=== PATIENT | male | born 1990 | race Caucasian/White ===

== ENCOUNTER 2019-04-10 13:25 | Emergency (ER) | payer OTHER ==
--- OUTSIDE RECORDS SUMMARY | 2019-04-10 13:41 | XMS REPORT | Continuity of Care Document ---
:1990 Author Organization [facility] Address [address] [place], [place] [id number] Phone Care Team Providers Name Role Phone Sandra Madrigal NP Unavailable Unavailable Allergies, Adverse Reactions, Alerts Substance Reaction Status No Known Allergies Active Medications Medication Instructions Dosage Effective Dates Status Comments (start - stop) LITHIUM CARBONATE Not Available - Active (unknown strength) Problems Condition Effective Dates (start - Clinical Status Comments stop) Encounter for oth general cnsl and advice on contraception Encntr screen for infections w sexl mode of transmiss Human immunodeficiency virus [HIV] - counseling Encounter for screening for human - immunodeficiency virus Procedures Procedure Date OFFICE/OUTPATIENT VISIT, NEW N.GONORRHOEAE, DNA, AMP PROB CHYLMD DNA, AMP PROBE Hepatitis C Antibody (Anti-HCV) Syphilis ROUTINE VENIPUNCTURE PREVENTIVE COUNSELING, 8-14 Minutes HIV-1/HIV-2, SINGLE ASSAY Results Test Name Date and Time Measure Units Reference Range Abnormal Flag Status Comments Panel Description: Syphilis Final Syphilis SOPHIA Non-reactive N Final Infection with T. pallidum 00:00:00 (cause of syphilis) unlikely (earlyprimary syphilis cannot be excluded). Requestadditional testing if syphilis is clinically suspected.SOPHIA: Chemiluminescence immunoassay

Performe d by:
&emsp;&ensp;CDD ([id number])

Panel Description: C trach DNA XXX Ql PCR Final Urine CT/GC Negative N Final Performed Combo - CT 00:00:00 by:
&emsp;&ensp;CDD ([id number])

Panel Description: Amplified GC - Urine Final Urine CT/GC Negative N Final : No

Performed Combo - GC 00:00:00 by:
&emsp;&ensp;CDD ([id number])

Advance Directives Directive Yes / No Effective Date File Name No information Encounters Encounter Practice Location Reason(s) Diagnoses Date Provider Providers Description For Visit Copied on Encounter OFFICE/OUTPA [facility] Encounter for oth Feb- White Referring TIENT VISIT, [facility] [place] [facility] and Sandra. Provider: [facility] advice on [address] [place] [address] contraceptionEncntr [address] [place], [address] infections w sexl [place], [address], [place], [place], [place], [place], [place] [address], [place], [address]. [id number], immunodeficiency [place]. [place] virus [HIV] tel:[phone] counselingEncounter [id number] for screening for human immunodeficiency virus Family History Family Member Diagnosis Age At Onset No information Immunizations Vaccine Date Status Comments No information Payers Payer name Insurance type Covered libertarian ID Authorization(s) Gagandeep [facility] CI [id number] Social History Type Description Quantity Date Captured Comments Alcohol Use Details Unknown Caffeine Use Details Unknown Tobacco Use Status Current non-smoker Smoking Status Never smoker Non-Smoking Tobacco : No Details Available : No Details Available 2018 Use Details Sex Male Vital Signs Date / Height Weight BMI Pulse Blood Temperature Respiratory Body Head BMI Pulse Inhaled Time: Rate Pressure Rate Surface Circumference percentile Ox Ox Area No information Chief Complaint And Reason For Visit No information Reason For Referral Reason For Referral No information Plan Of Treatment Date Type Action Status No information History Of Present Illness Encounter Date Complaint History Of Present Illness No information Functional Status Date Functional Assessment No information Medications Administered Medication Instructions Dosage Effective Dates (start - stop) Status Comments No information Instructions Date Instruction Additional Information No information Assessments Type Assessment Date assessment Encounter for oth general cnsl and advice on contraception 2018 assessment Encntr screen for infections w sexl mode of transmiss assessment Human immunodeficiency virus [HIV] counseling assessment Encounter for screening for human immunodeficiency virus 2018 Goals Health Concern Goal Type Priority Status Date No information Medical Equipment Description Device [place] Device Identifier Effective Dates (start - stop ) Status No information Mental Status Date Cognitive Assessment No information Health Concerns Observation Date No information Concern Status Date No information
--- NOTE | 2019-04-10 14:05 | ED ---
Laceration/Wound HPI - HPI Summary HPI Summary: Pt is 28 y/o otherwise healthy right-handed male with puncture wound to left fifth metacarpal occurring 1 hour ago while removing sheet rock from a stud with an exposed screw. He states he attempted to push the stud forcefully and did not see the screw until he punctured his hand. He believes the bone stopped the screw from penetrating his hand fully. States he last received tetanus vaccination 12 years ago. He has no other complaints at this time. - History of Current Complaint Stated Complaint: LEFT HAND INJURY PER PT Time Seen by Provider: 04/10/19 13:35 Hx Obtained From: Patient Mechanism of Injury: Sharp/Blunt Trauma - Puncture wound via screw., FB Potential Onset/Duration: Sudden Onset Aggravating: Nothing Alleviating: Nothing Timing: Constant Onset Severity: Moderate Current Severity: Moderate Pain Intensity: 4 Pain Scale Used: 0-10 Numeric Associated Signs & Symptoms: Negative Related Hx: Dominant Hand (Right) - Allergy/Home Medications Allergies/Adverse Reactions: Allergies Allergy/AdvReac Type Severity Reaction Status Date / Time No Known Allergies Allergy Verified 04/10/19 13:35 Home Medications: Home Medications Highland Carbonate [Highland Carbonate 600 mg cap] 600 mg PO BID 04/10/19 [ History Confirmed 04/10/19] PMH/Surg Hx/FS Hx/Imm Hx - Immunization History Date of Tetanus Vaccine: 12 years ago Infectious Disease History: No Infectious Disease History: Denies: Traveled Outside the [place] in Last 30 Days - Social History Alcohol Use: Occasionally Substance Use Type: Reports: None Smoking Status (MU): Never Smoked Tobacco Review of Systems Negative: Fever, Chills Positive: Other - puncture wound left palm. Negative: Bruising All Other Systems Reviewed And Are Negative: Yes Physical Exam Triage Information Reviewed: Yes Vital Signs On Initial Exam: Initial Vitals Temp Pulse Resp BP Pulse Ox 98.7 F 68 16 147/98 98 04/10/19 13:32 04/10/19 13:32 04/10/19 13:32 04/10/19 13:32 04/10/19 13:32 Vital Signs Reviewed: Yes Appearance: Positive: Well-Appearing, No Pain Distress Skin: Positive: Warm, Dry, Other - Puncture wound to left fifth mid metacarpal. No active bleeding. Tenderness surrounding the wound. No warmth, erythema, edema , or discharge. Cap refill <2 seconds. NV intact. Sensation intact. Head/Face: Positive: Normal Head/Face Inspection Eyes: Positive: Normal ENT: Positive: Normal ENT inspection Respiratory/Lung Sounds: Positive: Clear to Auscultation Cardiovascular: Positive: Normal Abdomen Description: Negative: Distended Musculoskeletal: Positive: Normal Neurological: Positive: Normal Psychiatric: Positive: Normal Diagnostics - Vital Signs Vital Signs Temp Pulse Resp BP Pulse Ox 04/10/19 13:32 98.7 F 68 16 147/98 98 - Laboratory Lab Statement: Any lab studies that have been ordered have been reviewed, and results considered in the medical decision making process. - Radiology Left hand x-ray Radiology Interpretation Completed By: Radiologist Summary of Radiographic Findings: no fracture Laceration Repair Course/Dx - Course Course Of Treatment: 28 y/o male with puncture wound to palmar aspect of left hand at fifth mid metacarpal with tetanus immunization not up to date. No active bleeding, minimal tenderness at puncture site with palpation. Pt refused pain medication. X-ray left hand ruled out fracture. No evidence of FB. Tdap administered. Pt to f/u with PCP - Differential Dx Differental Diagnoses: Puncture Wound - Clinical Impression Provider Diagnoses: Puncture wound of left hand without complication Discharge - Sign-Out/Discharge Documenting (check all that apply): Patient Departure Patient Received Moderate/Deep Sedation with Procedure: No - Discharge Plan Condition: Good Disposition: HOME Patient Education Materials: Puncture Wound (ED) Referrals: Deny Perdomo MD [Primary Care Provider] - Additional Instructions: Keep a bandage applied with anitbiotic ointment x 48 hours (however change bandage after 24) - Billing Disposition and Condition Condition: GOOD Disposition: Home - Attestation Statements Document Initiated by Scribe: Yes Documenting Scribe: SHANNON Strickland Provider For Whom Bill is Documenting (Include Credential): Mirtha Cagle PA-C Scribe Attestation: Dayna Buckner PA-S, scribed for Mirtha Cagle PA-C on 04/10/19 at 1536. Scribe Documentation Reviewed: Yes Provider Attestation: The documentation as recorded by the scribe, SHANNON Strickland accurately reflects the service I personally performed and the decisions made by Mirtha negron PA-C Status of Scribe Document: Viewed
[2019-04-10] MEDS ORDERED: Tetan/Diph/Pertus SYR(Tdap)* 0.5 ML SYR(BOOSTRIX) use SYR IM ONE (15:03)
[2019-04-10 15:18] VITALS: BP 137/73
== END 2019-04-10 15:17 | disposition home or self-care (01) ==
LOC: ED 13:25
DX: S61.432A Puncture wound without foreign body of left hand, initial encounter (principal); W45.0XXA Nail entering through skin, initial encounter; W22.09XA Striking against other stationary object, initial encounter
CPT/HCPCS: 90471; 90715; 99282

== ENCOUNTER 2019-08-08 21:07 | Emergency (ER) | payer SELFPAY ==
--- OUTSIDE RECORDS SUMMARY | 2019-08-08 21:14 | XMS REPORT | Continuity of Care Document ---
:1990 Author Organization [facility] Address [address] [place], [place] [id number] Phone Care Team Providers Name Role Phone Tiffany Pettit NP Unavailable Unavailable Allergies, Adverse Reactions, Alerts Substance Reaction Status No Known Allergies Active Medications Medication Instructions Dosage Effective Dates Status Comments (start - stop) LITHIUM CARBONATE Not Available - Active (unknown strength) Problems Condition Effective Dates (start - Clinical Status Comments stop) Human immunodeficiency virus [HIV] - counseling Balanitis Encounter for oth general cnsl and advice on contraception Encntr screen for infections w sexl mode of transmiss Human immunodeficiency virus [HIV] - counseling Encounter for screening for human - immunodeficiency virus Procedures Procedure Date PREVENTIVE COUNSELING, Under 8 Minutes OFFICE/OUTPATIENT VISIT, EST OTHER Medical Services Contraceptive Spinning Operator.Svc. Other Spinning Operator.Svc. STI Results Test Name Date and Time Measure Units Reference Range Abnormal Flag Status Comments No information Advance Directives Directive Yes / No Effective Date File Name No information Encounters Encounter Practice Location Reason(s) Diagnoses Date Provider Providers Description For Visit Copied on Encounter OFFICE/OUTPA [facility] STI Human [place] [facility]201 Tiffany. Provider: [facility] with virus [HIV] [address] Symptoms counselingBalanitis Amanuel Hester, [address] (M) (chief St, [address] complaint) [place], [address] [place], [place], [place], [address], [place], [address]. [id number], [place]. tel:[phone] [place] tel:[phone] tel:[phone] [facility] Encounter for oth Apr-2 White Referring [facility] [place] general cnsl and 9-[address] Sandra. Provider: Clif advice on [address] contraceptionEncntr [address] [place], [address] infections w sexl [place], [address], [place], [place], [place], [place] [address], [place], [address]. [id number], immunodeficiency [place]. [place] virus [HIV] tel:[phone] counselingEncounter [id number] for screening for human immunodeficiency virus Family History Family Member Diagnosis Age At Onset No information Immunizations Vaccine Date Status Comments No information Payers Payer name Insurance type Covered libertarian ID Authorization(s) Gagandeep [facility]INA [facility] CI [id number] Social History Type Description Quantity Date Captured [...] information Chief Complaint And Reason For Visit Most recent encounter only, dated '06/27/2019 08:50'. STI Testing with Symptoms (M) (chief complaint) Reason For Referral Reason For Referral No information Plan Of Treatment Date Type Action Status No information History Of Present Illness Encounter Date Complaint History Of Present Illness No information Functional Status Date Functional Assessment No information Medications Administered Medication Instructions Dosage Effective Dates (start - stop) Status Comments No information Instructions Date Instruction Additional Information No information Assessments Type Assessment Date assessment Human immunodeficiency virus [HIV] counseling assessment Balanitis Goals Health Concern Goal Type Priority Status Date No information Medical Equipment Description Device [place] Device Identifier Effective Dates (start - stop ) Status No information Mental Status Date Cognitive Assessment Normal Orientation Health Concerns Observation Date No information Concern Status Date No information
[2019-08-08 21:25] VITALS: BP 126/75
--- NOTE | 2019-08-08 21:26 | UC ---
Lower Extremity/Ankle HPI - HPI Summary HPI Summary: Patient is a 29yo male presenting with later right foot pain x1 hour after he was dancing and heard a "pop." Patient states he is able to walk with a limp but that it causes a lot of pain. Denies decreased ROM. Denies decreased sensation. Denies numbness and tingling. Denies ankle pain. Denies bruising or swelling. - History of Current Complaint Stated Complaint: RT FOOT INJURY Hx Obtained From: Patient Onset/Duration: Sudden Onset Severity Currently: Moderate Pain Intensity: 5 Pain Scale Used: 0-10 Numeric - Allergies/Home Medications Allergies/Adverse Reactions: Allergies Allergy/AdvReac Type Severity Reaction Status Date / Time No Known Allergies Allergy Verified 08/08/19 21:25 PMH/Surg Hx/FS Hx/Imm Hx Psychological History: Bipolar Disorder - Surgical History Surgical History: Yes Surgery Procedure, Year, and Place: wisdom teeth - Family History Known Family History: Positive: Non-Contributory - Social History Alcohol Use: Rare Substance Use Type: None Smoking Status (MU): Never Smoked Tobacco Review of Systems All Other Systems Reviewed And Are Negative: No Constitutional: Positive: Negative Skin: Negative: Bruising Respiratory: Positive: Negative Cardiovascular: Positive: Negative Motor: Negative: Weakness Neurovascular: Positive: Negative. Negative: Decreased Sensation, Decreased Pulses Musculoskeletal: Positive: Arthralgia. Negative: Decreased ROM, Edema Neurological: Positive: Negative Psychological: Positive: Negative Physical Exam Triage Information Reviewed: Yes Appearance: Well-Appearing, No Pain Distress, Well-Nourished Vital Signs: Initial Vital Signs Temp 98.6 F 08/08/19 21:19 Pulse 66 08/08/19 21:19 Resp 16 08/08/19 21:19 BP 126/75 08/08/19 21:19 Pulse Ox 99 08/08/19 21:19 Vital Signs Reviewed: Yes Eyes: Positive: Conjunctiva Clear ENT: Positive: Hearing grossly normal Neck: Positive: Supple Respiratory: Positive: No respiratory distress Cardiovascular: Positive: Pulses Normal, Brisk Capillary Refill Musculoskeletal: Positive: Strength Intact, ROM Intact, No Edema, Other: - pain to palpation of lateral right foot Neurological: Positive: Alert Psychological: Positive: Age Appropriate Behavior Skin: Positive: Other - no ecchymosis or edema noted Diagnostics - Radiology rt foot xray Radiology Interpretation Completed By: ED Physician Summary of Radiographic Findings: mcmahon fracture Lower Extremity Course/Dx - Course Course Of Treatment: Discussed with patient that his xray was read by me and Dr. Sy and that there is Mcmahon fracture present. Informed him that the official xray report will be obtained tomorrow. He received a posterior splint tonight which he was instructed leave on until he follows up with orthopedics. Gave the patients crutches so that he does not bear weight. Instructed to use ibuprofen for pain relief. I stressed the importance of follow up with the ortho referral listed as soon as possible. Directed him to go to the emergency room if pain worsens, the foot becomes cold and numb, or you are not able to bear weight. Patient voiced understanding and agreed to treatment plan. - Differential Dx/Diagnosis Provider Diagnosis: Mcmahon fracture Discharge ED - Sign-Out/Discharge Documenting (check all that apply): Patient Departure All imaging exams completed and their final reports reviewed: No - Discharge Plan Condition: Stable Disposition: HOME Patient Education Materials: Foot Fracture in Adults (ED) Referrals: Gonzalo Rankin MD [Medical Doctor] - As Soon As Possible Additional Instructions: As discussed, your xray was read by the provider who treated you. There was a fracture of your fifth metatarsal. The official xray report will be obtained tomorrow. You received a splint tonight which you should leave on until you are able to follow up with orthopedics. Use the crutches so that you do not put weight on that foot. You may use ibuprofen for pain relief. It is important that you follow up with the referral listed below as soon as possible. Go to the emergency room if pain worsens, the foot becomes cold and numb, or you are not able to bear weight. - Billing Disposition and Condition Condition: STABLE Disposition: Home
--- NOTE | 2019-08-09 12:37 | UC ---
- Progress Note Progress Note: IMPRESSION: Transverse fracture through the proximal diaphysis of the base of the fifth metatarsal without definite displacement. Wet read correct Course/Dx - Diagnoses Provider Diagnoses: Mcmahon fracture Discharge ED - Sign-Out/Discharge Documenting (check all that apply): Post-Discharge Follow Up All imaging exams completed and their final reports reviewed: Yes - Discharge Plan Condition: Stable Disposition: HOME Patient Education Materials: Foot Fracture in Adults (ED) Referrals: Gonzalo Rankin MD [Medical Doctor] - As Soon As Possible Additional Instructions: As discussed, your xray was read by the provider who treated you. There was a fracture of your fifth metatarsal. The official xray report will be obtained tomorrow. You received a splint tonight which you should leave on until you are able to follow up with orthopedics. Use the crutches so that you do not put weight on that foot. You may use ibuprofen for pain relief. It is important that you follow up with the referral listed below as soon as possible. Go to the emergency room if pain worsens, the foot becomes cold and numb, or you are not able to bear weight. - Billing Disposition and Condition Condition: STABLE Disposition: Home
== END 2019-08-08 22:05 | disposition home or self-care (01) ==
LOC: UCEAST 21:07
DX: S92.353A Displaced fracture of fifth metatarsal bone, unspecified foot, initial encounter for closed fracture (principal); X50.0XXA Overexertion from strenuous movement or load, initial encounter; Y92.9 Unspecified place or not applicable; Y93.41 Activity, dancing; F31.9 Bipolar disorder, unspecified
CPT/HCPCS: 99212; G0463

== ENCOUNTER 2021-05-10 20:48 | Inpatient (IN) ==
[2021-05-10 22:48] LABS: ABS Eosinophils 0.1 10^3/ul (0-0.6); ABS Lymphocytes 1.3 10^3/ul (1.0-4.8); ABS Monocytes 0.8 10^3/ul (0-0.8); ABS Neutrophils 4.6 10^3/ul (1.5-7.7); Eosinophil % 1.4 %; Hematocrit 44 % (42-52); Lymphocyte % 19.3 %; Mean Corpuscular HGB Conc 35 g/dL (31-36); Mean Corpuscular Hemoglobin 33 pg (27-31); Mean Corpuscular Volume 96 fL (80-94); Mean Platelet Volume 10.1 fL (7.4-10.4); Platelet Count 161 10^3/uL (150-450); Red Blood Count 4.54 10^6 /uL (4.18-5.48); Red Cell Distribution Width 13 % (10-15); White Blood Count 6.8 10^3/uL (3.5-10.8)
[2021-05-10 23:03] LABS: ALT 11 U/L (7-52); AST 20 U/L (13-39); Albumin 4.5 g/dL (3.2-5.2); Albumin/Globulin Ratio 1.8 (1-3); Alkaline Phosphatase 69 U/L (35-149); Anion Gap 7 mmol/L (2-11); Blood Urea Nitrogen 9 mg/dL (6-24); CO2 Carbon Dioxide 23 mmol/L (22-32); Chloride 104 mmol/L (101-111); EGFR African American 111.9 (>60); EGFR Non-African American 92.5 (>60); Globulin 2.5 g/dL (2-4); Glucose 113 mg/dL (70-100); Sodium 134 mmol/L (135-145)
[2021-05-10 23:04] LABS: Acetaminophen < 15 mcg/mL; Alcohol, S < 10 mg/dL (<10); Salicylate < 2.50 mg/dL (<30)
[2021-05-10] MEDS ORDERED: Lorazepam PYXIS KEY PRN (23:57)
[2021-05-10] MEDS ORDERED: LORazepam 2 mg VIAL 1 ml IM ONE (23:57)
[2021-05-11 04:38] LABS: HIV 4th Generation Nonreactive (Nonreactive)
[2021-05-11 06:03] LABS: Urine Appearance Clear; Urine Bilirubin Negative (Negative); Urine Blood Negative (Negative); Urine Color Yellow; Urine Glucose Negative (Negative); Urine Ketones Negative (Negative); Urine Nitrite Negative (Negative); Urine Protein Negative (Negative); Urine Specific Gravity 1.006 (1.002-1.030); Urine Urobilinogen Negative (Negative)
[2021-05-11 06:23] LABS: Urine Benzodiazepine Screen None Detected (None Detect); Urine Cannabinoids Screen None Detected (None Detect); Urine Opiates Screen None Detected (None Detect)
[2021-05-11] MEDS ORDERED: Al Hydrox/Mg Hydrox/Simet LIQ 30 ML UDC PO PRN (10:38)
[2021-05-11] MEDS ORDERED: Nicotine GUM 2MG FRUIT FLAVOR PO PRN (10:38)
[2021-05-12 09:04] LABS: HDL Cholesterol 38.7 mg/dL
[2021-05-12 13:49] LABS: Lithium 0.61 mmol/L (0.6-1.2)
[2021-05-13 20:55] VITALS: BP 121/74
== END 2021-05-14 13:00 | disposition home or self-care (01) | DRG 753 ==
LOC: ED 20:48 → BSU 05-11 10:38
PROVIDERS: ADMIT Psychiatry & Neurology Psychiatry; ATTEND Psychiatry & Neurology Psychiatry

== ENCOUNTER 2021-06-02 13:53 | Inpatient (IN) ==
[2021-06-02 15:01] LABS: ABS Eosinophils 0.1 10^3/ul (0-0.6); ABS Lymphocytes 1.1 10^3/ul (1.0-4.8); ABS Monocytes 0.8 10^3/ul (0-0.8); ABS Neutrophils 4.7 10^3/ul (1.5-7.7); Eosinophil % 0.8 %; Hematocrit 47 % (42-52); Hemoglobin 16.4 g/dL (14.0-18.0); Lymphocyte % 16.7 %; Mean Corpuscular HGB Conc 35 g/dL (31-36); Mean Corpuscular Hemoglobin 33 pg (27-31); Mean Corpuscular Volume 96 fL (80-94); Mean Platelet Volume 10.7 fL (7.4-10.4); Platelet Count 166 10^3/uL (150-450); Red Blood Count 4.93 10^6 /uL (4.18-5.48); Red Cell Distribution Width 13 % (10-15); White Blood Count 6.8 10^3/uL (3.5-10.8)
[2021-06-02 15:07] LABS: Urine Appearance Clear; Urine Bilirubin Negative (Negative); Urine Blood Negative (Negative); Urine Color Straw; Urine Glucose Negative (Negative); Urine Ketones Negative (Negative); Urine Nitrite Negative (Negative); Urine Protein Negative (Negative); Urine Specific Gravity 1.003 (1.002-1.030); Urine Urobilinogen Negative (Negative)
[2021-06-02 15:15] LABS: ALT 12 U/L (7-52); AST 21 U/L (13-39); Albumin/Globulin Ratio 1.9 (1-3); Alkaline Phosphatase 80 U/L (35-149); Anion Gap 5 mmol/L (2-11); Blood Urea Nitrogen 10 mg/dL (6-24); CO2 Carbon Dioxide 28 mmol/L (22-32); Calcium 10.4 mg/dL (8.6-10.3); Chloride 103 mmol/L (101-111); EGFR African American 110.5 (>60); EGFR Non-African American 91.4 (>60); Globulin 2.6 g/dL (2-4); Glucose 111 mg/dL (70-100); Potassium 4.1 mmol/L (3.5-5.0); Sodium 136 mmol/L (135-145); Total Protein 7.6 g/dL (6.4-8.9)
[2021-06-02 15:27] LABS: Acetaminophen < 15 mcg/mL; Alcohol, S < 10 mg/dL (<10); Salicylate < 2.50 mg/dL (<30)
[2021-06-02 15:29] LABS: Urine Benzodiazepine Screen None Detected (None Detect); Urine Cannabinoids Screen None Detected (None Detect); Urine Opiates Screen None Detected (None Detect)
[2021-06-02] MEDS ORDERED: Al Hydrox/Mg Hydrox/Simet LIQ 30 ML UDC PO PRN (18:34)
[2021-06-03] MEDS: Vitamin THERAPEUTIC TAB PO SCH (10:51)
[2021-06-04] MEDS: Vitamin THERAPEUTIC TAB PO SCH (11:24)
[2021-06-04] MEDS: OLANzapine 5 mg TAB*ODT PO PRN (15:34)
[2021-06-05 07:33] LABS: HDL Cholesterol 35.7 mg/dL
[2021-06-05] MEDS: Vitamin THERAPEUTIC TAB PO SCH ×2 (09:34→10:25)
[2021-06-06] MEDS: Vitamin THERAPEUTIC TAB PO SCH (09:20)
[2021-06-07] MEDS: Vitamin THERAPEUTIC TAB PO SCH (08:29)
[2021-06-08] MEDS: Vitamin THERAPEUTIC TAB PO SCH (09:08)
[2021-06-08] MEDS: CMCS: OMEGA-3 FATTY ACID 1000 mg(NF) PO SCH (19:36)
[2021-06-09] MEDS: Vitamin THERAPEUTIC TAB PO SCH (09:53)
[2021-06-09] MEDS: CMCS: OMEGA-3 FATTY ACID 1000 mg(NF) PO SCH ×2 (09:53→20:43)
[2021-06-10] MEDS: Vitamin THERAPEUTIC TAB PO SCH (09:54)
[2021-06-10] MEDS: CMCS: OMEGA-3 FATTY ACID 1000 mg(NF) PO SCH ×2 (09:54→20:39)
[2021-06-11] MEDS: OLANzapine 5 mg TAB*ODT PO PRN (08:10)
[2021-06-11] MEDS: CMCS: OMEGA-3 FATTY ACID 1000 mg(NF) PO SCH ×3 (09:33→21:43)
[2021-06-11] MEDS: Vitamin THERAPEUTIC TAB PO SCH (09:34)
[2021-06-12] MEDS: CMCS: OMEGA-3 FATTY ACID 1000 mg(NF) PO SCH ×2 (07:41→21:09)
[2021-06-12] MEDS: Vitamin THERAPEUTIC TAB PO SCH (07:43)
[2021-06-13] MEDS: CMCS: OMEGA-3 FATTY ACID 1000 mg(NF) PO SCH ×2 (07:28→19:59)
[2021-06-13] MEDS: Vitamin THERAPEUTIC TAB PO SCH ×2 (07:28→12:18)
[2021-06-13] MEDS ORDERED: Paliperidone SUSTENNA 234 MG/1.5 ML IM ONE (15:00)
[2021-06-14] MEDS: CMCS: OMEGA-3 FATTY ACID 1000 mg(NF) PO SCH ×2 (08:47→20:03)
[2021-06-14] MEDS: Vitamin THERAPEUTIC TAB PO SCH (10:34)
[2021-06-15] MEDS: Vitamin THERAPEUTIC TAB PO SCH (08:14)
[2021-06-15] MEDS: CMCS: OMEGA-3 FATTY ACID 1000 mg(NF) PO SCH ×2 (08:15→19:40)
[2021-06-16] MEDS: Vitamin THERAPEUTIC TAB PO SCH (08:43)
[2021-06-16] MEDS: CMCS: OMEGA-3 FATTY ACID 1000 mg(NF) PO SCH ×2 (08:43→20:43)
[2021-06-16] MEDS: Ondansetron ODT 4 mg TAB 4 MG TAB PO PRN (16:04)
[2021-06-17] MEDS: Ondansetron ODT 4 mg TAB 4 MG TAB PO PRN (06:00)
[2021-06-17 08:25] LABS: ALT 14 U/L (7-52); AST 17 U/L (13-39); Albumin 4.3 g/dL (3.2-5.2); Albumin/Globulin Ratio 1.8 (1-3); Alkaline Phosphatase 83 U/L (35-149); Globulin 2.4 g/dL (2-4); Total Protein 6.7 g/dL (6.4-8.9)
[2021-06-17] MEDS: CMCS: OMEGA-3 FATTY ACID 1000 mg(NF) PO SCH ×2 (09:13→20:43)
[2021-06-17] MEDS: Vitamin THERAPEUTIC TAB PO SCH (09:13)
[2021-06-18] MEDS: Vitamin THERAPEUTIC TAB PO SCH (09:24)
[2021-06-18] MEDS: CMCS: OMEGA-3 FATTY ACID 1000 mg(NF) PO SCH ×2 (09:25→20:25)
[2021-06-18] MEDS ORDERED: Lithium Carbonate ER 450mg TAB PO SCH (21:00)
[2021-06-19] MEDS: Vitamin THERAPEUTIC TAB PO SCH (09:10)
[2021-06-19] MEDS: CMCS: OMEGA-3 FATTY ACID 1000 mg(NF) PO SCH ×2 (09:10→20:32)
[2021-06-20] MEDS: CMCS: OMEGA-3 FATTY ACID 1000 mg(NF) PO SCH ×2 (08:04→21:38)
[2021-06-20] MEDS: Vitamin THERAPEUTIC TAB PO SCH (08:04)
[2021-06-21] MEDS: CMCS: OMEGA-3 FATTY ACID 1000 mg(NF) PO SCH (08:29)
[2021-06-21] MEDS: Vitamin THERAPEUTIC TAB PO SCH (08:29)
[2021-06-21 08:41] VITALS: BP 148/84
== END 2021-06-21 19:40 | disposition home or self-care (01) | DRG 753 ==
LOC: ED 13:53 → BSU 17:23
PROVIDERS: ADMIT Psychiatry & Neurology Psychiatry; ATTEND Psychiatry & Neurology Psychiatry

== ENCOUNTER 2023-08-16 22:28 | Inpatient (IN) ==
[2023-08-16 23:55] LABS: ABS Eosinophils 0.1 10^3/uL (0.0-0.5); ABS Lymphocytes 1.5 10^3/uL (1.0-4.8); ABS Monocytes 0.6 10^3/uL (0.0-1.1); ABS Neutrophils 3.2 10^3/uL (1.5-7.6); ABS Nucleated RBC 0.01 10^3/ul; Eosinophil % 1.6 %; Hematocrit 42.5 % (38-53); Lymphocyte % 27.9 %; Mean Corpuscular Hemoglobin 33.1 pg (27-33); Mean Corpuscular Hgb Conc 35.2 g/dL (31-36); Mean Platelet Volume 9.6 fL (7.5-11.2); Nucleated Red Blood Cells % 0.1 /100 WBC (0.0-0.4); Platelet Count 165 10^3/uL (150-450); Red Blood Count 4.53 10^6/uL (4.06-5.63); Red Cell Distribution Width 12.2 % (12-17); White Blood Count 5.4 10^3/uL (3.6-10.2)
[2023-08-17 00:17] LABS: Albumin 4.7 g/dL (3.2-5.2); Anion Gap 11 mmol/L (2-16); CO2 Carbon Dioxide 25 mmol/L (22-32); Calcium 9.7 mg/dL (8.6-10.3); Chloride 103 mmol/L (101-111); Potassium 3.6 mmol/L (3.5-5.0); Sodium 139 mmol/L (135-145)
[2023-08-17 00:23] LABS: ALT 18 U/L (7-52); AST 28 U/L (13-39); Alkaline Phosphatase 83 U/L (35-149); Blood Urea Nitrogen 10 mg/dL (6-24); Creatinine, Serum 0.99 mg/dL (0.67-1.17); Globulin 2.3 g/dL (2-4); Glucose 83 mg/dL (70-100); eGFR CKD-EPI 103.2 (>60)
[2023-08-17 00:29] LABS: Urine Benzodiazepine Screen None Detected (None Detect); Urine Cannabinoids Screen None Detected (None Detect); Urine Opiates Screen None Detected (None Detect)
[2023-08-17 00:33] LABS: Acetaminophen < 15 mcg/mL; Alcohol, S < 13 mg/dL (<13); Salicylate < 2.50 mg/dL (<30)
[2023-08-17 00:46] LABS: TSH Ultra Thyroid Stim Horm 1.22 mcIU/mL (0.34-5.60)
[2023-08-17 00:47] LABS: Lithium 0.43 mmol/L (0.6-1.2)
[2023-08-17 01:11] LABS: HIV 4th Generation Nonreactive (Nonreactive)
[2023-08-17] MEDS ORDERED: Al Hydrox/Mg Hydrox/Simet LIQ 30 ML UDC PO PRN (02:43)
[2023-08-17] MEDS: Vitamin THERAPEUTIC TAB PO SCH (09:05)
[2023-08-17] MEDS: Nicotine GUM 2MG FRUIT FLAVOR PO PRN ×2 (09:36→16:11)
[2023-08-18] MEDS: Vitamin THERAPEUTIC TAB PO SCH (09:38)
[2023-08-18] MEDS: Nicotine GUM 2MG FRUIT FLAVOR PO PRN (10:34)
[2023-08-19] MEDS: Vitamin THERAPEUTIC TAB PO SCH (07:49)
[2023-08-19 07:59] LABS: HDL Cholesterol 40.4 mg/dL
[2023-08-19] MEDS: Nicotine GUM 2MG FRUIT FLAVOR PO PRN ×2 (08:25→14:38)
[2023-08-20] MEDS: Vitamin THERAPEUTIC TAB PO SCH (08:17)
[2023-08-20] MEDS: Nicotine GUM 2MG FRUIT FLAVOR PO PRN (17:36)
[2023-08-21] MEDS: Vitamin THERAPEUTIC TAB PO SCH (09:12)
[2023-08-21] MEDS: Nicotine Lozenge mini 2 MG LOZNG.MINI MT PRN (21:45)
[2023-08-22] MEDS: Nicotine GUM 2MG FRUIT FLAVOR PO PRN ×2 (03:15→15:58)
[2023-08-22] MEDS: Vitamin THERAPEUTIC TAB PO SCH (08:47)
[2023-08-23] MEDS: Vitamin THERAPEUTIC TAB PO SCH (08:46)
[2023-08-23] MEDS: Nicotine Lozenge mini 2 MG LOZNG.MINI MT PRN (13:37)
[2023-08-23] MEDS: Nicotine GUM 2MG FRUIT FLAVOR PO PRN (23:12)
[2023-08-24] MEDS: Vitamin THERAPEUTIC TAB PO SCH (10:28)
[2023-08-24] MEDS: Nicotine Lozenge mini 2 MG LOZNG.MINI MT PRN (18:03)
[2023-08-25] MEDS: Vitamin THERAPEUTIC TAB PO SCH (09:42)
[2023-08-25] MEDS: Nicotine GUM 2MG FRUIT FLAVOR PO PRN (10:29)
[2023-08-26] MEDS: Vitamin THERAPEUTIC TAB PO SCH (08:56)
[2023-08-26] MEDS: Nicotine GUM 2MG FRUIT FLAVOR PO PRN (15:33)
[2023-08-27] MEDS: Vitamin THERAPEUTIC TAB PO SCH (07:28)
[2023-08-28] MEDS: Vitamin THERAPEUTIC TAB PO SCH (08:12)
[2023-08-29] MEDS: Vitamin THERAPEUTIC TAB PO SCH (08:32)
[2023-08-30] MEDS: Vitamin THERAPEUTIC TAB PO SCH (09:03)
[2023-08-31] MEDS: Vitamin THERAPEUTIC TAB PO SCH (08:27)
[2023-09-01] MEDS: Vitamin THERAPEUTIC TAB PO SCH (09:48)
[2023-09-02] MEDS: Vitamin THERAPEUTIC TAB PO SCH (09:04)
[2023-09-03 08:36] VITALS: BP 140/81
[2023-09-03] MEDS: Vitamin THERAPEUTIC TAB PO SCH (08:38)
[2023-09-04] MEDS: Vitamin THERAPEUTIC TAB PO SCH (08:34)
== END 2023-09-04 14:00 | disposition home or self-care (01) | DRG 753 ==
LOC: ED 22:28 → BSU 08-17 02:57
PROVIDERS: ADMIT Psychiatry & Neurology Psychiatry; ATTEND Psychiatry & Neurology Psychiatry